=== PATIENT | female | born 1990 | race Caucasian/White ===

== ENCOUNTER 2020-04-22 14:52 | Inpatient (IN) | payer OTHER ==
[~2020-04-22] VITALS: Ht 149.8 cm; Wt 68.0 kg
[~2020-04-22 14:52] MED LIST: ATIVAN0.5 MG PO; B-1100 MG PO; CARBIDOPA/LEVOD1 TA1 PO; DICYCLOMINE HCL20 MG PO; FLUOXETINE20 M1 PO; FOLIC ACID1 MG PO; HYDROXYZINE PAM50 MG PO; LEVOTHROID0.025 MG PO; METHOCARBAMOL750 M1 PO; MULTIPLE VITAMI1 TAB PO; ONDANSETRON4 MG PO; SEROQUEL25 MG PO; SINEMET 25-1001 TA1 PO; SINEMET 25-100M1 TAB PO; ZOFRAN 4 MG ED2 TAB PO
[2020-04-22 15:00] VITALS: BP 122/56
[2020-04-22 15:19] LABS: BASO % 0.3 % (0.0-1.0); EOS # 0.2 10*3/uL (0.0-0.4); EOS % 2.6 % (1.0-4.0); HEMATOCRIT 36.6 % (37.0-47.0); LYMPH # 1.2 10*3/uL (1.3-4.4); LYMPH % 14.8 % (27.0-41.0); MEAN CELL VOLUME 82.4 fl (81.0-99.0); MEAN CORPUSCULAR HGB 26.1 pg (27.0-31.0); MEAN CORPUSCULAR HGB CONC 31.7 g/dl (33.0-37.0); MEAN PLATELET VOLUME 10.7 fl (9.6-12.3); MONO # 0.8 10*3/uL (0.1-1.0); MONO % 10.5 % (3.0-9.0); NEUT # 5.7 10*3/uL (2.3-7.9); NEUT % 71.7 % (47.0-73.0); PLATELET COUNT AUTOMATED 236 10*3/uL (130-400); RED BLOOD COUNT 4.44 10*6/uL (4.10-5.10); RED CELL DISTRI WIDTH 14.6 % (0-14.5)
[2020-04-22 15:29] LABS: ALBUMIN 3.4 gm/dl (3.1-4.5); ALKALINE PHOSPHATASE 78 U/L (45-117); BUN 12 mg/dl (7-24); CHLORIDE 104 mmol/L (98-107); CREATININE 0.68 mg/dL (0.55-1.02); ETHYL ALCOHOL < 3.0 mg/dl (<3); LIPASE 53 U/L (73-393); POTASSIUM 4.1 mmol/L (3.5-5.1); SGOT/AST 38 IU/L (3-35); SGPT/ALT 61 U/L (12-78); SODIUM 136 mmol/L (136-145); TOTAL PROTEIN 7.7 gm/dL (6.4-8.2)
[2020-04-22 15:37] LABS: BILIRUBIN Negative (Negative); BLOOD Negative (Negative); CLARITY Clear (Clear); COLOR Dark Yellow (Yellow); GLUCOSE Negative (Negative); KETONE Trace (Negative); LEUKO ESTERASE Negative (Negative); NITRITE Negative (Negative); PH 6.5 (4.5-8.0); SPECIFIC GRAVITY >= 1.030 (1.001-1.030)
[2020-04-22 15:43] LABS: BACTERIA 1+; EPITHELIAL CELLS 0-2; MUCOUS TRACE; RBC 0-2 rbc/hpf (0-2); WBC 0-2 wbc/hpf (0-5)
[2020-04-22 15:45] LABS: URINE AMPHETAMINES < 1000 (1000ng/ml); URINE BARBITURATES < 200 (200ng/ml); URINE BENZODIAZEPINES < 200 (200ng/ml); URINE CANNABINOIDS (THC) < 50 (50ng/ml); URINE COCAINE > 300 (300ng/ml); URINE METHADONE < 300 (300ng/ml); URINE OPIATES < 300 (300ng/ml)
[2020-04-22 15:46] LABS: URINE PHENCYCLIDINE < 25 (25ng/ml)
== END 2020-04-22 20:08 | disposition left against medical advice (07) | DRG 770 ==
LOC: ED 14:52 → EDHOLD 16:03 → 4E 16:03
PROVIDERS: Nurse Practitioner; ADMIT Internal Medicine; ATTEND Internal Medicine
DX: F11.23 Opioid dependence with withdrawal (principal); F14.10 Cocaine abuse, uncomplicated; R51.9 Headache, unspecified; F19.10 Other psychoactive substance abuse, uncomplicated; F41.9 Anxiety disorder, unspecified; D64.9 Anemia, unspecified; F32.9 Major depressive disorder, single episode, unspecified; Z71.6 Tobacco abuse counseling; Z88.1 Allergy status to other antibiotic agents; Z88.0 Allergy status to penicillin; Z88.2 Allergy status to sulfonamides; Z88.8 Allergy status to other drugs, medicaments and biological substances; Z79.899 Other long term (current) drug therapy; Z53.29 Procedure and treatment not carried out because of patient's decision for other reasons; E83.41 Hypermagnesemia

== ENCOUNTER 2020-05-11 21:48 | Emergency (ER) | payer OTHER ==
[~2020-05-11] VITALS: Ht 149.8 cm; Wt 63.5 kg
== END 2020-05-11 22:45 | disposition home or self-care (01) ==
LOC: ED 21:48
DX: B37.0 Candidal stomatitis (principal); Z88.0 Allergy status to penicillin; Z88.2 Allergy status to sulfonamides; Z88.1 Allergy status to other antibiotic agents; Z79.899 Other long term (current) drug therapy; Z87.891 Personal history of nicotine dependence

== ENCOUNTER → 2021-02-12 | Outpatient (CLI) | payer OTHER ==
[2021-02-12 10:09] LABS: ALBUMIN 4.1 gm/dl (3.1-4.5); ALKALINE PHOSPHATASE 77 U/L (45-117); BUN 20 mg/dl (7-24); CHLORIDE 108 mmol/L (98-107); CREATININE 1.06 mg/dL (0.55-1.02); POTASSIUM 4.2 mmol/L (3.5-5.1); SGOT/AST 30 IU/L (3-35); SGPT/ALT 61 U/L (12-78); SODIUM 138 mmol/L (136-145); TOTAL PROTEIN 8.3 gm/dL (6.4-8.2)
[2021-02-13 07:06] LABS: HEP B CORE AB, IGM Negative (Negative); HEPATITIS B SURFACE AG Negative (Negative); HEPATITIS C VIRUS ANTIBODY >11.0 s/co (0.0-0.9)
[2021-02-14 12:06] LABS: HEPATITIS C QUANTITATION 797000 IU/mL (.)
== END | disposition home or self-care (01) ==
LOC: LAB 08:58
PROVIDERS: ATTEND Family Medicine
DX: F11.10 Opioid abuse, uncomplicated (principal)